=== PATIENT | male | born 1990 | race African-American/Black ===

== ENCOUNTER 2021-11-27 05:58 | Emergency (ER) | payer MEDICAID ==
[~2021-11-27] VITALS: Ht 172.7 cm; Wt 83.9 kg
--- NOTE | 2021-11-27 06:45 | NUR ---
BIBS TO ER BED 2. AAOX4. NOT IN RESP DISTRESS. AMBULATORY. CAME IN FOR R TESTICLE PAIN X TODAY. PER PT THIS IS THE SYMPTOMS THAT HE GET WHEN HE IS HAVING A UTI. WAS AT THE BEDSIDE FOR EVAL. URINE COLLECTED AND SENT TO LAB
[2021-11-27] MEDS ORDERED: KETOROLAC TROMETHAMINE INJ 60 MG/2 ML VIAL IM ONE (07:00)
[2021-11-27] MEDS ORDERED: KETOROLAC TROMETHAMINE INJ 30 MG/ML VIAL ONE (07:01)
[2021-11-27] MEDS ORDERED: DOXY100C2 PO (08:10)
[2021-11-27] MEDS ORDERED: CEFTRIAXONE 1 G VIAL ONE (08:28)
[2021-11-27] MEDS ORDERED: LIDOCAINE /MPF 1% VIAL 5 ML VIAL ONE (08:28)
[2021-11-27] MEDS ORDERED: CEFTRIAXONE 1 G VIAL IM ONE (08:30)
--- NOTE | 2021-11-27 08:35 | NUR ---
Patient discharged to home in stable condition. Written and verbal after care instructions given. Patient verbalizes understanding of instruction.
[2021-11-27 08:36] VITALS: BP 131/75
[2021-11-27] MEDS ORDERED: IBUP-1957 PO (09:10)
[2021-11-27] MEDS ORDERED: ACET-2605 PO (09:10)
[2021-11-27 10:47] LABS: BILIRUBIN,URINE NEGATIVE (NEGATIVE); COLOR,URINE YELLOW (YELLOW); LEUKOCYTE ESTERASE ,URINE NEGATIVE (NEGATIVE); NITRITE, URINE NEGATIVE (NEGATIVE); PROTEIN,URINE NEGATIVE (NEGATIVE); UGLUCOSE NEGATIVE (NEGATIVE); UROBILINOGEN,URINE 0.2 EU/dL (0.2)
== END 2021-11-27 08:36 | disposition home or self-care (01) ==
LOC: ER 06:04
DX: N45.1 Epididymitis (principal); N43.3 Hydrocele, unspecified
CPT/HCPCS: 76870; 81003; 96372 ×2; 99284; J0696; J1885; J3490

== ENCOUNTER 2022-02-04 07:18 | Emergency (ER) | payer MEDICAID ==
[~2022-02-04] VITALS: Ht 172.7 cm; Wt 85.3 kg
[~2022-02-04 07:18] MED LIST: ACET-2605 PO; DOXY100C2 PO; IBUP-1957 PO
[2022-02-04 07:35] VITALS: BP 133/93
--- NOTE | 2022-02-04 07:40 | NUR ---
Came in c/o right third finger swelling; left thumb base pain. Ambulatory not in distress. seen by
--- NOTE | 2022-02-04 08:00 | NUR ---
METAL DRESSER AT THE BEDSIDE
--- NOTE | 2022-02-04 08:02 | NUR ---
x-ray technicianis at bed side
[2022-02-04] MEDS ORDERED: IBUP-1957 PO (08:44)
== END 2022-02-04 09:10 | disposition home or self-care (01) ==
LOC: ER 07:22
DX: S63.632A Sprain of interphalangeal joint of right middle finger, initial encounter (principal); S63.602A Unspecified sprain of left thumb, initial encounter; Z87.440 Personal history of urinary (tract) infections; Z79.1 Long term (current) use of non-steroidal anti-inflammatories (NSAID); Z79.899 Other long term (current) drug therapy; X58.XXXA Exposure to other specified factors, initial encounter; Y93.64 Activity, baseball; Y92.89 Other specified places as the place of occurrence of the external cause; Y99.8 Other external cause status
CPT/HCPCS: 73130-TC; 73140-TC

== ENCOUNTER 2023-02-17 12:35 | Emergency (ER) | payer MEDICAID ==
[~2023-02-17] VITALS: Ht 172.7 cm; Wt 83.9 kg
--- NOTE | 2023-02-17 12:50 | NUR ---
BIBS C/O DIARRHEA AND LEFT SIDED ABDOMINAL PAIN X 2 WEEKS. AMBULATORY, PLACED IN BED, AAOX4.
--- NOTE | 2023-02-17 13:35 | NUR ---
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
[2023-02-17 14:17] LABS: ALBUMIN 4.1 g/dL (3.4-5.0); BILIRUBIN,DIRECT 0.1 mg/dL (0.0-0.2); BILIRUBIN,TOTAL 0.7 mg/dL (0.2-1.0); CREATININE 1.5 mg/dL (0.6-1.3); POTASSIUM 4.6 mmol/L (3.5-5.1); TOTAL PROTEIN, SERUM 6.8 g/dL (6.4-8.2)
[2023-02-17 14:19] LABS: HEMATOCRIT 41 % (39-51); HEMOGLOBIN 13.6 g/dL (13.5-17.5); MEAN CORPUSCULAR HGB CONC 33 g/dl (31.0-36.0); MEAN CORPUSCULAR VOLUME 87 fL (80-96); PLATELET COUNT (AUTO) 203 K/uL (150-450); RED BLOOD CELL COUNT(AUTO) 4.77 MIL/uL (4.5-6.0); WHITE BLOOD COUNT (AUTO) 5.1 K/uL (4.3-11.0)
[2023-02-17 15:15] LABS: COLOR,URINE YELLOW (YELLOW); PH,URINE 5.5 (5.0-8.0); PROTEIN,URINE NEGATIVE (NEGATIVE); UGLUCOSE NEGATIVE (NEGATIVE)
[2023-02-17 15:16] LABS: BILIRUBIN,URINE NEGATIVE (NEGATIVE); LEUKOCYTE ESTERASE ,URINE NEGATIVE (NEGATIVE); NITRITE, URINE NEGATIVE (NEGATIVE); UROBILINOGEN,URINE 0.2 EU/dL (0.2)
[2023-02-17] MEDS ORDERED: DICY10CA37 PO (15:55)
[2023-02-17] MEDS ORDERED: POLY17PO4 PO (15:55)
[2023-02-17 16:08] VITALS: BP 120/69
--- NOTE | 2023-02-17 16:08 | NUR ---
Patient discharged to home in stable condition. Written and verbal after care instructions given. Patient verbalizes understanding of instruction.
[2023-02-17 17:27] LABS: EOSINOPHILS % (MANUAL) 2 % (0-4); LYMPHOCYTES % (MANUAL) 27 % (16-48); MONOCYTES % (MANUAL) 6 % (0-11.0); NEUTROPHILS % (MANUAL) 65 (42-76)
== END 2023-02-17 16:09 | disposition home or self-care (01) ==
LOC: ER 12:38
DX: R19.7 Diarrhea, unspecified (principal); R10.9 Unspecified abdominal pain; Z87.440 Personal history of urinary (tract) infections; Z79.899 Other long term (current) drug therapy
CPT/HCPCS: 36415; 74018; 80048-TC; 80076-TC; 83690-TC; 85025-TC